=== PATIENT | female | born 2005 | race Hispanic/Latino ===

== ENCOUNTER 2024-12-29 21:07 | Emergency (ER) | payer BC, SELFPAY ==
--- NOTE | ~2024-12-29 | CT_ITS ---
EXAMINATION: CT facial & cervical spine wo DATE: 12/29/2024 23:10 INDICATION: Head injury. TECHNIQUE: Computed tomography (CT) of the maxillofacial region and cervical spine was performed without intravenous contrast. Automated exposure control and iterative reconstruction technique were employed. The dose-length product was 128.22 mGy-cm. COMPARISON: None FINDINGS: MAXILLOFACIAL CT: There is leftward deviation of the nasal septum. No fracture. The paranasal sinuses are clear. The mastoid air cells are normal. The orbits are normal. CERVICAL SPINE CT: There is kyphosis of cervical spine. There is 4 degrees levocurvature of cervical spine. Vertebral body heights are normal. Intervertebral disc heights are normal. There is mild facet joint osteoarthritis bilaterally at C7-T1. No neural foraminal stenosis or central canal stenosis. IMPRESSION: 1. No fracture. Reviewed, dictated and finalized at location E. IMPRESSION: 1. No fracture.
--- NOTE | ~2024-12-29 | CT_ITS ---
EXAMINATION: CT brain wo con DATE: 12/29/2024 23:10 INDICATION: Headache. Head injury. TECHNIQUE: Computed tomography (CT) of the head was performed without intravenous contrast. The mA was adjusted according to patient size. Iterative reconstruction technique was employed. The dose-length product was 605.33 mGy-cm. COMPARISON: None FINDINGS: There is no intracranial hemorrhage, acute infarction, or abnormal intracranial mass lesion. The ventricles are normal in size. The orbits are normal. There is mild mucosal thickening in the paranasal sinuses. The mastoid air cells are normal. IMPRESSION: 1. Normal brain. Reviewed, dictated and finalized at location E. IMPRESSION: 1. Normal brain.
[2024-12-29 21:12] VITALS: BP 101/75; PULSE 74; RESP 16; TEMP 36.6; O2SAT 100
--- NOTE | 2024-12-29 22:30 | ED_ITS ---
HPI - Neck Pain/Injury General Chief Complaint: Neck Pain/Injury Stated Complaint: NECK PAIN Time Seen by Provider: 12/29/24 22:08 History of Present Illness HPI Narrative: Patient is a 19-year-old female who presents to the ER with head and neck pain. She reports last night she was on her bed and landed on the floor. Patient reports she landed on the right side of her face/neck/head. She denies loss of consciousness but endorses nausea and vomiting. Patient also endorses facial pain. She endorses a history of migraines and 2 previous concussions. Patient denies any visual changes, shoulder pain, chest pain, or back pain. Related Data Allergies Allergy/AdvReac Type Severity Reaction Status Date / Time No Known Allergies Allergy Verified 12/29/24 21:17 Review of Systems Review of Systems: All systems reviewed & are unremarkable except as noted in HPI and below Exam Narrative: GENERAL: Well appearing, well-nourished, non-toxic, in no acute distress. HEAD: Normocephalic, atraumatic. NECK: Supple. No adenopathy, no masses. RESPIRATORY: Airway patent, respirations nonlabored. Clear to auscultation bilaterally, no rales, rhonchi, wheezing. CARDIOVASCULAR: Regular rate and rhythm without murmurs, rubs, or gallops. Peripheral pulses 2+ and equal bilaterally. ABDOMINAL: Soft, nontender, nondistended, no hepatosplenomegaly. Normoactive BS. MUSCULOSKELETAL: Moves all extremities. Strength/ROM intact without gross deformities. SKIN: Warm, dry, normal color. No rashes. NEURO: A&O X3. Speech clear. Cranial nerves II-XII intact. No ataxic movements. PSYCHIATRIC: Appropriate mood and affect. Normal interaction. Course Vital Signs Vital signs: Vital Signs Temperature 36.6 C 12/29/24 21:12 Pulse Rate 74 12/29/24 21:12 Respiratory Rate 16 12/29/24 21:12 Blood Pressure 101/75 12/29/24 21:12 Pulse Oximetry 100 12/29/24 21:12 Oxygen Delivery Room Air 12/29/24 21:12 Temperature 36.6 C 12/29/24 21:12 Pulse Rate 90 12/30/24 00:18 Respiratory Rate 17 12/30/24 00:18 Blood Pressure 98/58 L 12/30/24 00:18 Pulse Oximetry 100 12/30/24 00:18 Oxygen Delivery Room Air 12/29/24 21:12 MDM - Neck Pain/Injury MDM Narrative Medical decision making narrative: Patient is a 19-year-old female who presents to the ER with head and neck pain. She reports last night she was on her bed and landed on the floor. Patient reports she landed on the right side of her face/neck/head. She denies loss of consciousness but endorses nausea and vomiting. Patient also endorses facial pain. She endorses a history of migraines and 2 previous concussions. Patient denies any visual changes, shoulder pain, chest pain, or back pain. Labs Ordered: bedside Imaging Ordered: CT brain, CT facial and cervical spine Medications Ordered: 1 L normal saline IV bolus, Reglan IV, Decadron IV, Benadryl IV Results: Patient's CT scan indicates no acute osseous pathology. No significant canal or foraminal stenosis. Head CT negative for acute int racranial abnormality. Diagnosis: Concussion without loss of consciousness, cervical strain Patient Education/Shared MDM: Results of imaging shared with patient. She endorses improvement of symptoms following medication administration. Patient strongly advised to follow-up with her PCP as needed. She will be discharged home with a prescription for Zofran. Strict return precautions provided. P atient verbalized understanding and is in agreement with plan. Vital signs stable at time of discharge. All questions answered. Differential Diagnosis Differential diagnosis: Likely whiplash injury to neck, closed subluxation of cervical spine, fracture of cervical spine without lesion of spinal cord, strain of neck muscle and other (concussion) Imaging Data Attestation: I personally reviewed and interpreted this imaging study as follows: Radiologist's impression: Patient's CT scan indicates no acute osseous pathology. No significant canal or foraminal stenosis. Head CT negative for acute intracranial abnormality. Discharge Plan Discharge Clinical Impression: Concussion without loss of consciousness, Strain of neck muscle Patient Disposition: Home Condition: Stable Instructions: Antibiotic Form, Concussion (ED), Neck Pain (ED) Additional Instructions: Please return to the ER with any worsening symptoms. Follow-up with primary c are provider as needed. Take all medications as prescribed, including regularly scheduled medications. Patient Language: Nigerien Prescriptions: New ondansetron 4 mg tablet,disintegrating 4 mg PO Q8H Qty: 30 0RF cyclobenzaprine 10 mg tablet 10 mg PO TID PRN (Reason: muscle spasm) Qty: 30 0RF Follow-up/Referrals: UNKNOWN,DOCTOR [Non-Staff] Stand Alone Forms: Work/School Release IP Time of Disposition: 23:47
[2024-12-29] MEDS: SODIUM CHLORIDE 0.9% IV 1,000 ML 999 ML IV CONT (22:43)
[2024-12-29] MEDS: METOCLOPRAMIDE HCL INJ 10 MG/2 ML VIAL IV PUSH (22:44)
[2024-12-29] MEDS: dexAMETHasone SOD PHOS INJ 10 MG/ML 1 ML VIAL IV PUSH (22:44)
[2024-12-30 00:18] VITALS: BP 98/58; PULSE 90; RESP 17; O2SAT 100
[2024-12-30 00:49] VITALS: BP 98/59; PULSE 80; RESP 16; O2SAT 100
[2024-12-30] MEDS: KETOROLAC 15 MG/ML VIAL (*BKC) IV PUSH (00:52)
== END 2024-12-30 00:59 | disposition home or self-care (01) ==
PROVIDERS: Emergency Provider Registered Nurse; PCP Family Medicine
DX: S06.0X0A Concussion without loss of consciousness, initial encounter (principal); S16.1XXA Strain of muscle, fascia and tendon at neck level, initial encounter; W06.XXXA Fall from bed, initial encounter
CPT/HCPCS: 70450; 70486; 72125; 96361; 96374; 96375; 99284; J1100; J1200; J1885; J2765; J7030

== ENCOUNTER 2025-03-17 20:10 | Emergency (ER) | payer BC, OTHER, SELFPAY ==
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
--- NOTE | 2025-03-17 20:13 | PC.NURSE ---
national investigative producer notified that pt here for Velas[facility] case. Charge moving patients to clean a private room.
--- OUTSIDE RECORDS SUMMARY | 2025-03-17 20:13 | XMS_ITS | Clinical Summary ---
Author Organization [facility] Address [address] [place] [address] Care Team Providers Care Painter And Paperhanger Apprentice Name Role Phone Nic Hutchinson MD Unavailable [phone] Derek Franklin DO Primary Care Provider [phone] [facility],non-owned Affiliates and Associated Physician Practices is amultiple site organization consisting of ambulatory clinics and hospital sitesin [place], [place], [place] and [place]. This disclosure is being madepursuant to the Care Everywhere program and may not contain all information available regarding this patient. Last updated 17.[facility] Allergies Active Allergy Reactions Criticality Noted Date Comments Pork Derived Products Urticaria Medium 01/24/2018 Medications * Be aware that medications may not be up to date on this document. Alwaysverify current medications with the patient. EPINEPHrine (EPIPEN) 0.3 MG/0.3ML auto-injector pen Inject 0.3 mg into muscle 01/24/2018 Active ISOtretinoin (ACCUTANE PO) Take 60 mg by mouth once daily Active MYORISAN 30 MG capsule Take 60 mg by mouth once daily 07/11/2019 Active famotidine (PEPCID) 40 MG tablet TAKE 1 TABLET BY MOUTH EVERYDAY AT BEDTIME 90 tablet 10/22/2019 Active amitriptyline (ELAVIL) 25 MG tablet 25 mg 07/05/2021 Active levonorgestrel- ethinyl estradiol (SEASONIQUE) 0.15-0.03 &0.01 MG tablet Take 1 tablet by mouth once daily 05/25/2021 Active Active Problems Problem Noted Date Diagnosed Date Closed nondisplaced fracture of middle phalanx of right little finger 07/28/2021 Closed nondisplaced fracture of middle phalanx of right ring finger 07/28/2021 Hand pain, right 07/28/2021 Spinal asymmetry (< 10 degrees) 08/29/2019 Epigastric pain 05/14/2019 Frequent headaches 05/14/2019 Depressed mood 08/10/2018 Popping of right temporomandibular joint on open ing of jaw 08/10/2018 Resolved Problems Problem Noted Date Diagnosed Date Resolved Date Otitis media Feb 2017 08/10/20182018 suicidal attempt Jan 2017 08/10/2018 Immunizations Immunization Administration Dates Next Due DTaP VACCINE IM (6wk-6yrs) 09/25/2013,,08/20/2005,2004 HEP A PEDS 2 DOSE 06/16/2016,10/22/2015 HEP B VACCINE, PED/ADOL 10/20/2005,08/20/2005, HIB-PRP-T 4 DOSE 10/20/2005,08/20/2005, 5 Human Papilloma Virus Vaccine 11/10/2017, 017 INFLUENZA VACCINE, QUADR. (F LUZONE; FLULAVAL; FLUARIX; AFLURIA QUADRIVALENT; 6MO+), 0.5 ML (IIV4) 05/14/2019 MENINGOCOCAL MENINGITIS 09/23/2015 MMR 10/26/2013,09/25/2013 POLIO IPV 10/22/2015, 6,07/31/2005,2005,02/02/2005 TDAP (7yrs+) 09/23/2015 VARICELLA 01/31/2014,09/25/2013 Family History Medical History Relation Name Comments None Known Father Brain Tumor Maternal Grandfather Hypertension Maternal Grandfather Hypertension Maternal Grandmother Hypertension Mother Dementia Paternal Grandfather Renal Disease Paternal Grandmother None Known Sister Brianna Relation Name Status Comments Father Alive Maternal Grandfather Maternal Grandmother Alive Mother Alive Paternal Grandfather Alive Paternal Grandmother Sister Brianna Alive Social History Tobacco Use Types Packs/Day Years Used Date Smoking Tobacco: Never Smokeless Tobacco: Never Comments:has tried vape befo re Alcohol Use Standard Drinks/Week Comments Not Currently 0 (1 standard drink = 0.6 oz pure alcohol) has tried alcohol, with friends, but didn't like it Comments No Sex and Gender Information Value Date Recorded Sex Assigned at Not on file Legal Sex Female 9:35 AM CDT Gender Identity Not on file Sexual Orientation Not on file Last Filed Vital Signs Vital Sign Reading Time Taken Comments Blood Pressure 112/62 11/13/2018 1:22 PM CDT Pulse 80 07/30/2019 3:28 PM CDT Temperature 36.6 C (97.9 F) 07/30/2019 3:28 PM CDT Respiratory Rate 19 07/30/2019 3:28 PM CDT Oxygen Saturation 100% 07/30/2019 3:28 PM CDT Inhaled Oxygen Concentration - - Weight 53 kg (116 lb 13.5 oz) 08/14/2021 1:29 PM CDT Height 158.8 cm (5' 2.52) 08/14/2021 1:29 PM CD T Body Mass Index 21.02 08/14/2021 1:29 PM CDT Plan of Treatment Health Maintenance Due Date Last Done Comments HIV SCREENING 12/01/2019 CHLAMYDIA/GONORRHEA SCREENING 2020 MENINGOCOCCAL (Group B) VACCINE SHARED DECISION-MAKING (1 of 2 - Standard) 2020 HEPATITIS C SCREENING 11/26/2022 DEPRESSION SCREENING 03/21/2024 COVID-19 VACCINE ( season) 2024 INFLUENZA VACCINE (#1) 2024 , 12/13/2019, 05/14/2019 DTAP/TDAP/TD VACCINES (6 - Td or Tdap) 09/22/2025 09/23/2015, 09/25/2013, 10/20/2005, Additional history exists ZOSTER VACCINE (1 of 2) 2054 HEPATITIS B VACCINE Completed 10/20/2005, 08/20/2005, 02/02/2005 HIB VACCINE Aged Out 10/20/2005, 04/2005, 02/02/2005 No longer eligible based on patient's age to complete this topic MENINGOCOCCAL GROUPS A/C/Y/W VACCINE Aged Out 09/23/2015 No longer eligible based on patient's age to complete this topic HPV VACCINE Completed 11/10/2017, 06/16/2016 PNEUMOCOCCAL VACCINE Aged Out No long er eligible based on patient's age to complete this topic Insurance [facility] Care Teams Painter And Paperhanger Apprentice Relationship Specialty Start Date End Date Derek Franklin DO [address] [address] PCP - General Family Medicine 07/28/21 Nic Hutchinson MD Orthopedic Surgery 12/20/18
--- OUTSIDE RECORDS SUMMARY | 2025-03-17 20:13 | XMS_ITS | Clinical Summary ---
Author Organization [facility] Address [address] [place] [id number] Care Team Providers Care Cosmetics Supervisor Name Role Phone Derek Franklin DO Primary Care Provider [phone] Allergies Active Allergy Reactions Criticality Noted Date Comments Porcine (Pork) Protein-Conta ining Drug Products Hives 01/24/2018 Medications propranolol (INDERAL) 20 MG tablet Take 1 tablet (20 mg total) by mouth daily. 05/16/19 24 Active escitalopram (LEXAPRO) 5 MG tablet Take 1 tablet (5 mg total) by mouth daily. 05/16/19 24 Active ondansetron (ZOFRAN-ODT) 4 MG disintegrating tablet Take 1 tablet (4 mg total) by mouth every 8 (eight) hours as needed. 20 tablet 11/05/19 24 Active Additional Information Patient not taking.Reported on 12/09/2024 amitriptyline (ELAVIL) 25 MG tablet Take 1 tablet (25 mg total) by mouth daily. 01/26/20 24 Active clindamycin (CLEOCIN T) 1 % lotion APPLY A SMALL AMOUNT ONCE A DAY TO FACE 09/25/19 25 Active spironolactone (ALDACTONE) 100 MG tablet Take 1 tablet (100 mg total) by mouth daily. 08/03/19 25 Active Active Problems No known active problems Family History Medical History Relation Comments Multiple Sclerosis Father Hypertension Mother Relation Status Comments Father Alive Mother Alive Social History Tobacco Use Types Packs/Day Years Used Date Smoking Tobacco: Never Passive Smoke Exposure: Never Smokeless Tobacco: Never Tobacco Cessation:Counseling Given: Not Answered Alcohol Use Standard Drinks/Week Comments No 0 (1 standard drink = 0.6 oz pur e alcohol) AUDIT-C Answer Date Recorded Frequency of Alcohol Consumption Never 01/24/2018 Average Number of Drinks Not on file 018 Frequency of Binge Drinking Not on file 08/2017 Comments No Sex and Gender Information Value Date Recorded Sex Assigned at Female 12/09/2024 12:11 PM CDT Legal Sex Female 6:16 PM HADOOP APPLICATION DEVELOPER Gender Identity Not on file Sexual Orientation Not on file Last Filed Vital Signs Vital Sign Reading Time Taken Comments Blood Pressure 106/60 12/09/2024 12:23 PM CDT Pulse 69 12/09/2024 12:23 PM CDT Temperature 36.6 C (97.9 F) 12/09/2024 12:23 PM CDT Respiratory Rate 16 12/09/2024 12:23 PM CDT Oxygen Saturation 100% 12/09/2024 12:23 PM CDT Inhaled Oxygen Concentration - - Weight 52.2 kg (115 lb) 12/09/2024 12:23 PM CDT Height 160 cm (5' 3) 12/09/2024 12:23 PM CDT Body Mass Index 20.37 12/09/2024 12:23 PM CDT Plan of Treatment Health Maintenance Due Date Last Done Comments Annual Physical 12/01/2007 Meningococcal B Vaccine (1 of 2 - Standard) 2020 Hepatitis C 2022 COVID-19 Vaccine (1 - season) 2024 Influenza Adult (#1) 2024 01/10/2023, 01/19/2022, 01/17/2021, Additional history exists DTaP, Tdap and Td Vaccines (7 - Td or Tdap) 02/16/2031 02/16/2021, 09/23/2015, 09/25/2013, Additional history exists Hepatitis B Vaccines Completed 10/20/2005, 08/20/2005, 02/02/2005 Hepatitis A Vaccines Completed 06/16/2016, 10/22/19 16 HPV Vaccines Completed 11/10/2017, 06/16/2016 Meningococcal Vaccine Completed 02/16/2021, 016 Pneumococcal Vaccine: Pediatrics (0 to 5 Years) and At-Risk Patients (6 to 49 Years) Aged Out No longer eligible based on patient's age to complete this topic RSV Immunizations Under 20 Months Aged Out No longer eligible based on patient's age to complete this topic [place] [address] [facility] [place] [address] Care Teams Cosmetics Supervisor Relationship Specialty Start Date End Date Derek Franklin DO [address] [place] [address] PCP - General FAMILY PRACTICE 01/29/20
[2025-03-17 20:15] VITALS: BP 104/64; PULSE 78; RESP 16; TEMP 37.1; O2SAT 94
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
--- OUTSIDE RECORDS SUMMARY | 2025-03-17 21:28 | XMS_ITS | Clinical Summary ---
Author Organization [facility] Address [address] [place] [address] Care Team Providers Care Primary Health Organisation Manager Name Role Phone Nic Hutchinson MD Unavailable [phone] Derek Franklin DO Primary Care Provider [phone] Source Comments [facility],non-owned Affiliates and Associated Physician Practices is amultiple site organization consisting of ambulatory clinics and hospital sitesin [place], [place], [place] and [place]. This disclosure is being madepursuant to the Care Everywhere program and may not contain all information available regarding this patient. Last updated 17.[facility] Allergies Active Allergy Reactions Criticality Noted Date [...] patient's age to complete this topic Insurance [facility] Care Teams Primary Health Organisation Manager Relationship Specialty Start Date End Date Derek Franklin DO [address] [address] PCP - General Family Medicine 07/28/21 Nic Hutchinson MD Orthopedic Surgery 12/20/18
--- OUTSIDE RECORDS SUMMARY | 2025-03-17 21:28 | XMS_ITS | Clinical Summary ---
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
[2025-03-17 22:38] LABS: BEDSIDEPREGUCG Negative (Negative)
[2025-03-17 22:47] LABS: Hematocrit 39.7 % (37.0-47.0); Hemoglobin 13.4 g/dL (12.0-15.0); Immature Granulocyte Percent A 0.1 % (0-0.5); Lymphocytes Absolute Auto 3.50 K/mm3 (0.9-3.2); Mean Corpuscular HGB Conc 33.8 g/dl (32-36); Mean Corpuscular Hemoglobin 30.9 pg (26-34); Mean Corpuscular Volume 91.7 fl (80-100); Nucleated Red Blood Cells Absolute Auto 0.000 K/mm3 (0.0-0.012); Nucleated Red Blood Cells Perc 0.0 % (0.0-0.2); Platelet Count Result 311 k/mm3 (150-375); Red Blood Count 4.33 M/mm3 (4.2-5.4); White Blood Count 7.3 K/mm3 (4.5-10.0)
[2025-03-17 22:57] LABS: Alanine Aminotransferase 17 U/L (6-35); Albumin Level 4.6 g/dL (3.5-5.1); Alkaline Phosphatase 58 U/L (38-126); Anion Gap 5 mmol/L (4-12); Aspartate Amino Transferase 28 U/L (14-36); Bilirubin,Total 0.8 mg/dL (0.2-1.3); Blood Urea Nitrogen 13 mg/dL (7-17); Calcium 9.0 mg/dL (8.4-10.2); Carbon Dioxide 30 mmol/L (22-30); Chloride 103 mmol/L (98-107); Estimated CRCL calculation 97 ml/min; Estimated Glomerular Filt Rate > 60; Glucose 77 mg/dL (65-110); Potassium 3.6 mmol/L (3.4-5.0); Sodium 138 mmol/L (137-145); Total Protein 7.3 g/dL (6.3-8.2)
--- NOTE | 2025-03-18 00:50 | PC.NURSE ---
sane nurse at bedside
[2025-03-18 01:08] LABS: Pregnancy On Board Control Positive
--- NOTE | 2025-03-18 01:36 | PC.NURSE ---
srikanth nurse done and out
[2025-03-18 01:57] LABS: Add Urine Microscopic? NO; Appearance Urine Clear (Clear); Glucose Urine UA Negative (Negative); Leukocyte Esterase Ur Negative LEU/UL (Negative); Nitrate Urine Negative (Negative); Specific Grav Ur 1.025 (1.001-1.035)
[2025-03-18] MEDS: cefTRIAXone 1 GM VIAL 0.5 GM IM (01:59)
[2025-03-18] MEDS: DOXYCYCLINE HYCLATE 100 MG TABLET PO (02:02)
[2025-03-18] MEDS: ONDANSETRON HCL ODT 4 MG TABLET PO (02:05)
[2025-03-18] MEDS: LIDOCAINE 1% LOCAL INJ 10 ML VIAL (02:06)
[2025-03-18 02:55] LABS: HIV 1/2 Ab P24 Ag Result Negative (Negative)
[2025-03-18] MEDS: EMTRICITABINE-TENOFOVIR 100 MG-150 MG TABLET 2 TAB PO (03:17)
[2025-03-18] MEDS: RALTEGRAVIR 400 MG TABLET PO (03:17)
[2025-03-18 03:53] VITALS: BP 102/82; PULSE 74; RESP 20; O2SAT 100
== END 2025-03-18 03:56 | disposition home or self-care (01) ==
PROVIDERS: Emergency Provider Registered Nurse; PCP Family Medicine
DX: T74.21XA Adult sexual abuse, confirmed, initial encounter (principal); Y04.8XXA Assault by other bodily force, initial encounter
CPT/HCPCS: 36415; 70496; 70498; 72125; 80053; 81003; 81025; 85025; 86703; 96372; 99284; A9270; G0432; J0696; J2003; Q9967